=== PATIENT | male | born 1980 | race African-American/Black ===

== ENCOUNTER 2016-06-30 17:21 | Emergency (ER) | payer BC, MEDICAID ==
--- NOTE | 2016-07-13 03:57 | ER ---
ADMIT: 06/30/2016 RM/LOC: ER [facility] MR#: [id number] [place], [place] [id number] CHINTAN ECHEVERRIA [address] [place] [address] Emergency Room Report SEX: M AGE: 36 : 1980 DATE: 06/30/2016 CHIEF COMPLAINT: Sores, lower leg, left arm. HISTORY OF PRESENT ILLNESS: A 36-year-old black male, who presents to the ER for evaluation of some sores on his left leg and left arm. The patient states he has a known history of pemphigus vulgaris. He typically doctors with Dr. Marie for Dermatology, has not seen her in some time. He states for the past 1- 2 weeks, he has had increased occurrence of sores on the left leg and left arm. He describes it as itchy, painful, and weeping. He says the sores are worse on his left leg, increasingly so on his left arm. He also describes some oral lesion. He does have a history of pemphigus vulgaris. He was seen last here in the ER for a similar flare and given a course of steroids, to follow up with Dr. Marie, does not sound like he has done so. COURSE IN EMERGENCY ROOM: The patient was seen and examined. Vitals 129/87, heart rate 91, respirations 18, temp 98.5. He is alert, in no acute distress. He does have some bullous lesions with secondary overlying traumatic erythematous lesions secondary to scratching. They are not warm. They are not draining, do not look cellulitic. He also has some developing sores on his left arm. He has several lesions in his mouth. IMPRESSION: Acute flare of pemphigus vulgaris. DISPOSITION: I did start the patient on another round of corticosteroid with a shot of Decadron 20 mg IM today with prednisone taper to include 30 mg p.o. b.i.d. for 3 days, 20 mg p.o. b.i.d. for 3 days, 10 mg p.o. b.i.d. for 3 days, 5 mg p.o. b.i.d. for 3 days, and then 5 mg p.o. daily for 3 days. He is to follow up with Dr. Marie this week. I stressed the importance of following up with her as continued treatment with prednisone or likely to have some ramifications on his health in the [facility]. I felt it was important he follow up with her to discuss options for controlling this rather than treating it from further flare with high-dose corticosteroid. He did request a script for hydrocodone. However, when asking him what he has been doing for pain at present, he states he has not used any [id number] pain medications. I felt it was appropriate for him to use [id number] medications to start with and follow up with Dr. aMrie if his pain is not well controlled with these. Questions were sought and answered to the best of my ability and patient's satisfaction, discharged in stable condition. RAMIN Nice / Brooks Cardenas MD / juanita JOB #: [id number] CC: Silverio Chappell MD, Attending Physician Ori Scott MD, Family Physician
== END 2016-06-30 18:45 | disposition home or self-care (01) ==
LOC: ER 17:21
DX: L10.0 Pemphigus vulgaris (principal)